=== PATIENT | female | born 1975 | race Two or more races ===

== ENCOUNTER 2016-05-31 10:09 | Emergency (ER) | payer OTHER ==
[2016-05-31 11:38] LABS: PH,URINE 6.5 (5.0-8.0); SPECIFIC GRAVITY 1.015 (1.001-1.030); URINE BILIRUBIN NEGATIVE (NEGATIVE); URINE BLOOD 4+ (NEGATIVE); URINE GLUCOSE (UA) NEGATIVE (NEGATIVE); URINE LEUKOCYTE ESTERASE NEGATIVE (NEGATIVE); URINE NITRITE NEGATIVE (NEGATIVE); URINE PROTEIN TRACE (NEGATIVE); URINE UROBILINOGEN NORMAL (0-1 mg/dl)
[2016-05-31 11:42] LABS: HCG,QUALITATIVE URINE POSITIVE
[2016-05-31 11:43] LABS: URINE APPEARANCE CLEAR; URINE COLOR YELLOW
[2016-05-31 11:54] LABS: ABSOLUTE NEUTROPHIL COUNT 4.7 K/mm3 (1.8-7.7); BASO % 0.4 % (0.2-1.0); EOS # 0.1 (0.0-0.5); EOS % 0.9 % (0.9-2.9); HEMATOCRIT 37.2 % (37.0-47.0); HEMOGLOBIN 12.4 gm/l (12.0-16.0); IMM NEUT% 0.3 % (0-1); LYMPH # 1.7 (1.0-4.8); LYMPH % 24.4 % (15-45); MEAN CELL VOLUME 90.5 fl (81.0-99.0); MEAN CORPUSCULAR HEMOGLOBIN 30.2 pg (27.0-31.0); MEAN CORPUSCULAR HGB CONC 33.3 g/dl (33.0-37.0); MEAN PLATELET VOLUME 8.8 fl (7.4-10.4); MONO # 0.4 (0.0-0.8); MONO % 6.2 % (4-12); NEUT % 67.8 % (43-75); PLATELET COUNT 288 K/mm3 (130-400); RED CELL DISTRIBUTION WIDTH 12.4 % (11.5-14.5)
[2016-05-31 12:10] LABS: URINE BACTERIA 0; URINE EPITHELIAL CELLS FEW /hpf; URINE WBC NEG /hpf
[2016-05-31 12:15] LABS: ALB/GLOB RATIO 1.3 (>1.0); ALBUMIN 3.9 gm/dL (3.5-5.7)
--- NOTE | 2016-05-31 13:17 | US ---
Clinical History: with cramping and bleeding. Comparison: By report, patient states ultrasound in [place] on 05/29/2016, with demise. Findings: Multiple grayscale, color-flow and duplex Doppler images during transabdominal and transvaginal pelvic ultrasound are obtained. An early intrauterine is identified. Mean sac diameter is 1.49 cm, for gestational age of 5 weeks and 5 days. [place]-rump length is 1.39 cm for a gestational age of 7 weeks and 5 days. Mean gestational age is 7 weeks and 5 days. Estimated date of delivery is 01/12/2017. heart tones are not identified A normal amount of amniotic fluid is present. It is too early to comment upon placental location or evidence of previa. There is no subchorionic hemorrhage. Right ovary measures 3.1 x 2.1 x 4.0 cm with blood flow. Left ovary is not visualized. Pelvic survey reveals no gross abnormalities. Impression: Single intrauterine gestation without heart tones as above. Findings are compatible with demise. [facility] consult would be recommended for further management and treatment. Follow-up as clinically warranted. Findings were called to Dr. Guan at approximately 1311 hours on 05/31/2016.
== END 2016-05-31 14:05 | disposition home or self-care (01) ==
LOC: ED 10:09
DX: O03.9 Complete or unspecified spontaneous abortion without complication (principal); Z3A.08 8 weeks gestation of pregnancy